=== PATIENT | female | born 1970 | race African-American/Black ===

== ENCOUNTER 2017-03-03 10:38 | Emergency (ER) | payer MEDICARE, MEDICAID ==
--- NOTE | 2017-03-03 11:57 | ER Document Report ---
ED General - General Chief Complaint: Wrist Pain Stated Complaint: RIGHT WRIST PAIN Time Seen by Provider: 03/03/17 11:47 Mode of Arrival: Ambulatory Information source: Patient - patient is deaf Notes: Patient is a 46-year-old female presenting with right wrist pain that started 5 weeks ago. She she is unsure of any specific injury and denies any recent fall. She states the pain is localized to her right wrist with associated swelling to the same. She states the pain prevents her from lifting anything heavy with her right arm and is worse when she sleeps. She endorses associated swelling but denies any numbness or tingling. She describes the pain as throbbing. She has tried heating pad and [id number] pain medication with no relief. 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 Patient is deaf and entire history and physical exam were assisted by [employer] sanding machine buffer. TRAVEL OUTSIDE OF THE [place] IN LAST 30 DAYS: No - Related Data Allergies/Adverse Reactions: No Known Allergies Allergy (Verified 10/09/15 12:34) Past Medical History - General Information source: Patient - Social History Smoking Status: Never Smoker Family History: Reviewed & Not Pertinent Past Surgical History: Reports: Hx Orthopedic Surgery - L knee - Immunizations Immunizations up to date: Yes Hx Diphtheria, Pertussis, Tetanus Vaccination: No Review of Systems - Review of Systems Constitutional: No symptoms reported EENT: No symptoms reported Cardiovascular: No symptoms reported Respiratory: No symptoms reported Gastrointestinal: No symptoms reported Genitourinary: No symptoms reported Female Genitourinary: No symptoms reported Musculoskeletal: See HPI Skin: No symptoms reported Hematologic/Lymphatic: No symptoms reported Neurological/Psychological: No symptoms reported Physical Exam - Vital signs Vitals: Temp Pulse Resp BP Pulse Ox 98.1 F 71 16 127/61 H 99 03/03/17 10:45 03/03/17 10:45 03/03/17 10:45 03/03/17 10:45 03/03/17 10:45 - Notes Notes: PHYSICAL EXAM: CONSTITUTIONAL: Alert and oriented, well-appearing and in no acute distress. HENT: Normocephalic, atraumatic. Trachea midline. Uvula midline. Moist mucous membranes. EYES: Pupils equal round and reactive to light, EOM intact. Sclera anicteric, conjunctiva are normal. No entrapment. NECK: supple without lymphadenopathy. HEART: Regular rate and rhythm without murmurs. LUNGS: CTAB and equal. No wheezes, rales or rhonchi. BACK: nontender, no paraspinous spasm, 5+/5 strengths, DTRs 2+, SLR -. EXTREMITIES: Right wrist - tender to palpation over first dorsal compartment over the radial styloid with associated nonpitting edema. Distal pulses intact. Patient has full range of motion of thumb with the ability to touch each finger. Bessy test is positive, Tinel's and Phalen's test is negative. normal range of motion, no pitting edema. No cyanosis. Cap Refill <3 seconds. NEURO: Cranial nerves grossly intact. Normal sensory/motor exams. PSYCH: Normal mood, normal affect. SKIN: Warm and dry. Normal turgor. No rashes or lesions noted. Course - Re-evaluation Re-evalutation: 03/03/17 12:51 Patient seen and examined. Used MARTTI for translation as patient is deaf. Patient is alert and oriented, no distress noted and nontoxic in appearance. No evidence of cellulitis or septic arthritis. Swelling to the distal radius and ulna concerning for possible deformity however not palpable on exam. Patient a positive Bessy's test on exam and negative testing for carpal tunnel syndrome. Will obtain x-rays. 03/03/17 13:51 Reviewed imaging studies which is negative for acute fracture or dislocation. Based on exam feel this is De Quervain tendinopathy. Will treat with thumb spica splint and steroids/anti-inflammatories. Advised to follow-up with primary care doctor. Low suspicion at this time versus septic arthritis or other emergent conditions. At this time, will discharge with return precautions and follow-up recommendations. Verbal discharge instructions given at the bedside and opportunity for questions given. Medication warnings reviewed. Patient is in agreement with this plan and has verbalized understanding of return precautions and the need for primary care follow-up in the next 24-72 hours. - Vital Signs Vital signs: Temp Pulse Resp BP Pulse Ox 98.1 F 71 16 127/61 H 99 03/03/17 10:45 03/03/17 10:45 03/03/17 10:45 03/03/17 10:45 03/03/17 10:45 Procedures - Immobilization Right Wrist Pre-Proc Neuro Vasc Exam: Normal Immobilizer type: Thumb spica Performed by: PCT Post-Proc Neuro Vasc Exam: Normal Alignment checked and good: Yes Discharge - Discharge Clinical Impression: Tendinitis, de Quervain's Condition: Stable Disposition: HOME, SELF-CARE Additional Instructions: Tendonitis The pain you are having is due to tendonitis -- an inflammation around a muscle tendon. It's usually caused by overuse or repeated minor injuries ( strains) of the tendon. Your xray today was normal - no signs of broken bones or dislocation. Tendonitis can take two to four weeks to heal. In fact, you may actually worsen for a few days despite treatment. Tendonitis is usually treated with rest, local heat, and antiinflammatory medication. Sometimes cold packs are recommended if the tendonitis has just started. If the pain is severe or prolonged, cortisone injections may be required. Call the doctor if pain or swelling become severe, if new discoloration or redness appears, or if numbness is noted. Temporary Splint A splint has been applied for protection. This is a temporary measure to allow the healing to begin. Once the area can be moved painfree, you can put the splint aside. As you begin to use the injured part, be careful not to put so much stress on it that it hurts. If routine use causes pain, put the splint back on! If you can't use the part without pain after several days' rest, or if the injury is not completely painfree within a week or two, please return for re- examination. If there is unexpected severe pain, numbness, discoloration, or swelling beyond the splint, you should call the doctor or return at once. STEROID MEDICATION: You have been given a medicine of the cortisone/steroid class. This medication is used to control inflammation or allergy. It is usually only given for a short period of time, until the acute process subsides. There are usually no side effects from short-term use of cortisone-like medications. Some persons feel an increased sense of well-being and are not sleepy at bedtime. Long-term use of cortisone medications is best avoided, unless required for a severe condition. If your condition does not remit, or relapses after the course of corticosteroid medication, you should consult your physician. Follow up with the provider of your choice as soon as possible. Return if symptoms worsen. Prescriptions: Ketorolac Tromethamine [Toradol 10 mg Tablet] 10 mg PO Q8HP PRN #20 tablet PRN Reason: Prednisone [Deltasone 10 mg Tablet] 10 mg PO ASDIR PRN #21 tablet PRN Reason: Forms: Elevated Blood Pressure, Return to Work
--- NOTE | 2017-03-03 13:42 | RADIOLOGY REPORT (SQ) ---
EXAM DESCRIPTION: WRIST RIGHT 3 VIEWS COMPLETED DATE/TIME: 03/03/2017 12:54 pm REASON FOR STUDY: FALL, swelling, pain COMPARISON: None. NUMBER OF VIEWS: Three views. TECHNIQUE: AP, lateral, and oblique radiographic images acquired of the right wrist. LIMITATIONS: None. FINDINGS: MINERALIZATION: Normal. BONES: No acute fracture or dislocation. No worrisome bone lesions. Normal alignment. SOFT TISSUES: No soft tissue swelling. No foreign body. OTHER: No other significant finding. IMPRESSION: NEGATIVE STUDY OF THE RIGHT WRIST. NO RADIOGRAPHIC EVIDENCE OF ACUTE INJURY. TECHNICAL DOCUMENTATION: JOB ID: [id number] [employer]- All Rights Reserved
[2017-03-03 14:26] VITALS: BP 123/69
== END 2017-03-03 14:25 | disposition home or self-care (01) ==
LOC: ER 10:38
DX: M77.8 Other enthesopathies, not elsewhere classified (principal); M25.531 Pain in right wrist; H91.90 Unspecified hearing loss, unspecified ear
CPT/HCPCS: 99283

== ENCOUNTER 2017-10-18 10:03 | Emergency (ER) | payer MEDICARE, OTHER ==
[2017-10-18] MEDS ORDERED: ONDANSETRON 4 MG TAB.RAPDIS PO ONE (10:21)
--- NOTE | 2017-10-18 10:23 | ER Document Report ---
ED Medical Screen (RME) - General Chief Complaint: Epigastric Pain Stated Complaint: ABDOMINAL PAIN Time Seen by Provider: 10/18/17 10:16 Mode of Arrival: Ambulatory Information source: Patient Notes: This is a 47-year-old female who is deaf who presents to the emergency room with epigastric pain since yesterday. Patient reports nausea and has vomited twice. Patient denies any fever, dysuria, hematuria, vaginal discharge. Medicines: None Past surgical history: Left knee surgery Past medical history: None No known drug allergies TRAVEL OUTSIDE OF THE [place] IN LAST 30 DAYS: No - Related Data Allergies/Adverse Reactions: No Known Allergies Allergy (Verified 10/18/17 10:06) Past Medical History Renal/ Medical History: Denies: Hx Peritoneal Dialysis Past Surgical History: Reports: Hx Orthopedic Surgery - L knee - Immunizations Immunizations up to date: Yes Hx Diphtheria, Pertussis, Tetanus Vaccination: No Physical Exam - Vital signs Vitals: Temp Pulse Resp BP Pulse Ox 98.5 F 69 20 136/69 H 97 10/18/17 10:15 10/18/17 10:15 10/18/17 10:15 10/18/17 10:15 10/18/17 10:15 Course - Vital Signs Vital signs: Temp Pulse Resp BP Pulse Ox 98.5 F 69 20 136/69 H 97 10/18/17 10:15 10/18/17 10:15 10/18/17 10:15 10/18/17 10:15 10/18/17 10:15
[2017-10-18] MEDS ORDERED: MAG HYDROX/AL HYDROX/SIMETH SUSP 30 ML UDCUP PO ONE (10:34)
[2017-10-18] MEDS ORDERED: LIDOCAINE 2% VISCOUS SOLN 20 ML UDCUP PO ONE (10:34)
[2017-10-18] MEDS ORDERED: METOCLOPRAMIDE HCL ORAL SOLN 10 MG/10 ML UDCUP PO ONE (10:34)
--- NOTE | 2017-10-18 10:44 | ER Document Report ---
ED General - General Chief Complaint: Epigastric Pain Stated Complaint: ABDOMINAL PAIN Time Seen by Provider: 10/18/17 10:16 Mode of Arrival: Ambulatory TRAVEL OUTSIDE OF THE [place] IN LAST 30 DAYS: No - HPI Notes: 47-year-old female presents with him as well as epigastric pain starting yesterday. The patient is deaf and had to use [employer] machine stamper. Stated this began yesterday. She had 2 episodes of nausea vomiting. No coffee-ground emesis. No chest pain or shortness of breath. The patient denies any hematuria or dysuria denies black bloody or tarry stools. Not had this in the past. Describes it as burning. - Related Data Allergies/Adverse Reactions: No Known Allergies Allergy (Verified 10/18/17 10:23) Past Medical History - General Information source: Patient - Social History Smoking Status: Never Smoker Chew tobacco use (# tins/day): No Frequency of alcohol use: None Drug Abuse: None Family History: Reviewed & Not Pertinent Patient has suicidal ideation: No Patient has homicidal ideation: No Renal/ Medical History: Denies: Hx Peritoneal Dialysis Past Surgical History: Reports: Hx Orthopedic Surgery - L knee - Immunizations Immunizations up to date: Yes Hx Diphtheria, Pertussis, Tetanus Vaccination: No Review of Systems - Review of Systems Cardiovascular: denies: Chest pain Gastrointestinal: Abdominal pain, Nausea, Vomiting. denies: Black stools, Rectal bleeding Genitourinary: denies: Dysuria -: Yes All other systems reviewed and negative Physical Exam - Vital signs Vitals: Temp Pulse Resp BP Pulse Ox 98.5 F 69 20 136/69 H 97 10/18/17 10:15 10/18/17 10:15 10/18/17 10:15 10/18/17 10:15 10/18/17 10:15 - Notes Notes: GENERAL_APPEARANCE: well_nourished, alert, cooperative, is uncomfortable VITALS: reviewed, see vital signs table. HEAD: no_swelling\tenderness on the head. EYES: conjunctiva_clear. NOSE: no_nasal_discharge. MOUTH: (-)decreased moisture. THROAT: no_throat_inflammation, no_airway_obstruction. no_lymphadenopathy NECK: supple, no_neck_tenderness, (-)thyromegaly. BACK: no_back_tenderness. CHEST_WALL: no_chest_tenderness. LUNGS: no_wheezing, no_rales, no_rhonchi, (-)accessory muscle use, good air exchange bilateral. HEART: normal_rate, normal_rhythm, normal_S1, normal_S2, (-)S3, (-)S4, no_ murmur, no_rub. ABDOMEN: normal_BS, soft, epigastric_abd_tenderness, (-)guarding, (-)rebound, no_organomegaly, no_abd_masses. EXTREMITIES: good pulses in all_extremities, no_swelling\tenderness in the extremities, no_edema. SKIN: warm, dry, good_color, no_rash. MENTAL_STATUS: speech_clear, oriented_X_3, normal_affect, responds_ appropriately to questions. NEURO: Neg Motor or Sensory Deficits on exam, CN 2-12 intact, DTR 2+ symmetric x 4, No cerbellar signs Course - Re-evaluation Re-evalutation: 10/18/17 10:42 47-year-old female presents to the emergency department with epigastric pain. Some generalized blood work check pancreatic enzymes liver enzymes get an ultrasound of the abdomen. X-ray to assess for free air. Give the patient a GI cocktail and some Zofran. 10/18/17 14:09 I spoke with the patient through the mixed signal design engineer Yahir. He does take a lot of Aleve at home. Her gallbladder stuff looked good. Her exam seems more epigastric she may be having an early ulcer formation she has no black bloody or tarry stools or significant anemia. Will place her on acid reduction and Carafate. Advised her to stop taking the Aleve. Have an NSAID induced gastritis versus early ulcer formation. Will refer to GI - Dr Church - Vital Signs Vital signs: Temp Pulse Resp BP Pulse Ox 98.5 F 69 20 136/69 H 97 10/18/17 10:15 10/18/17 10:15 10/18/17 10:15 10/18/17 10:15 10/18/17 10:15 - Laboratory Result Diagrams: 10/18/17 11:07 10/18/17 11:07 Laboratory results interpreted by me: 10/18/17 10/18/17 11:07 11:57 Sodium 145.9 H BUN 22 H AST 44 H Total Protein 8.9 H Urine Protein 30 H Urine Ketones 20 H Urine Bilirubin SMALL H Urine Urobilinogen 2.0 H Ur Leukocyte Esterase SMALL H - Diagnostic Test Radiology reviewed: Image reviewed Radiology results interpreted by me: 10/18/17 14:09 Abdomen Ultrasound 10/18/17 10:21 IMPRESSION: NORMAL RIGHT UPPER QUADRANT ULTRASOUND. Acute Abdomen Series 10/18/17 10:38 IMPRESSION: NO RADIOGRAPHIC EVIDENCE FOR ACUTE ABDOMINAL DISEASE. Discharge - Discharge Clinical Impression: Gastritis and duodenitis Condition: Good Disposition: HOME, SELF-CARE Instructions: Gastritis ([facility]) Additional Instructions: Please follow-up with gastroenterology for further care if he is worse return to the ER otherwise avoid spicy and fatty foods. Prescriptions: Pantoprazole Sodium [Protonix] 40 mg PO DAILY #30 tablet. Sucralfate [Carafate 1 gm Tablet] 1 gm PO ACHS #60 tablet Referrals: STEPHANY CHURCH MD [ACTIVE STAFF] - Follow up as needed
[2017-10-18 11:29] LABS: ABSOLUTE BASOPHILS # (AUTO) 0.1 10^3/uL (0.0-0.2); ABSOLUTE EOSINOPHILS # (AUTO) 0.1 10^3/uL (0.0-0.6); ABSOLUTE LYMPHOCYTES (AUTO) 1.2 10^3/uL (0.5-4.7); ABSOLUTE MONOCYTES (AUTO) 0.5 10^3/uL (0.1-1.4); ABSOLUTE NEUT (AUTO) 4.7 10^3/uL (1.7-8.2); BASOPHILS % (AUTO) 1.1 % (0-2); EOSINOPHILS % (AUTO) 0.9 % (0-6); HEMOGLOBIN 13.3 g/dL (12.0-15.5); LYMPHOCYTES % (AUTO) 18.4 % (13-45); MEAN CORPUSCULAR HEMOGLOBIN 29.1 pg (27.0-33.4); MEAN CORPUSCULAR HGB CONC 33.3 g/dL (32.0-36.0); MEAN CORPUSCULAR VOLUME 87 fl (80-97); MONOCYTES % (AUTO) 7.6 % (3-13); PLATELET COUNT 223 10^3/uL (150-450); RED BLOOD COUNT 4.58 10^6/uL (3.72-5.28); TOTAL CELLS COUNTED % (AUTO) 100 %; WHITE BLOOD COUNT 6.6 10^3/uL (4.0-10.5)
[2017-10-18 11:53] LABS: ALANINE AMINOTRANSFERASE 24 U/L (9-52); ALBUMIN 4.5 g/dL (3.5-5.0); ALKALINE PHOSPHATASE 105 U/L (38-126); ANION GAP 15 (5-19); ASPARTATE AMINO TRANSFERASE 44 U/L (14-36); BILIRUBIN,DIRECT 0.4 mg/dL (0.0-0.4); BILIRUBIN,TOTAL 0.8 mg/dL (0.2-1.3); BLOOD UREA NITROGEN 22 mg/dL (7-20); CALCIUM 9.7 mg/dL (8.4-10.2); CARBON DIOXIDE 26 mmol/L (22-30); CHLORIDE 105 mmol/L (98-107); GLUCOSE 92 mg/dL (75-110); LIPASE 57.4 U/L (23-300); POTASSIUM 3.8 mmol/L (3.6-5.0); SODIUM 145.9 mmol/L (137-145); TOTAL PROTEIN 8.9 g/dL (6.3-8.2)
--- NOTE | 2017-10-18 12:16 | RADIOLOGY REPORT (SQ) ---
EXAM DESCRIPTION: U/S ABDOMEN LIMITED W/O DOP COMPLETED DATE/TIME: 10/18/2017 12:06 pm REASON FOR STUDY: upper abd pain r/o GB disease COMPARISON: None. TECHNIQUE: Dynamic and static grayscale images acquired of the abdomen and recorded on PACS. Additio nal selected color Doppler and spectral images recorded. LIMITATIONS: None. FINDINGS: PANCREAS: No masses. Visualized pancreatic duct normal caliber. LIVER: No masses. Echotexture normal. LIVER VASCULATURE: Normal directional flow of the main portal vein and hepatic veins. GALLBLADDER: No stones. Normal wall thickness. No pericholecystic fluid. ULTRASOUND-DETECTED GRAHAM'S SIGN: Negative. INTRAHEPATIC DUCTS AND COMMON DUCT: CBD and intrahepatic ducts normal caliber. No filling defects. INFERIOR VENA CAVA: Normal flow. AORTA: No aneurysm. RIGHT KIDNEY: Normal size. Normal echogenicity. No solid or suspicious masses. No hydronephrosis. No calcifications. PERITONEAL AND RIGHT PLEURAL SPACE: No ascites or effusions. OTHER: No other significant findings. IMPRESSION: NORMAL RIGHT UPPER QUADRANT ULTRASOUND. TECHNICAL DOCUMENTATION: JOB ID: [id number]- All Rights Reserved Reading location - IP/workstation name: [email or web address]
[2017-10-18 12:33] LABS: APPEARANCE,URINE CLOUDY; BILIRUBIN,URINE SMALL (NEGATIVE); COLOR,URINE DARK YELLOW; GLUCOSE, URINE NEGATIVE (NEGATIVE); KETONES,URINE 20 mg/dL (NEGATIVE); LEUKOCYTE ESTERASE,URINE SMALL (NEGATIVE); NITRITE,URINE NEGATIVE (NEGATIVE); PROTEIN,URINE 30 mg/dL (NEGATIVE)
--- NOTE | 2017-10-18 12:42 | RADIOLOGY REPORT (SQ) ---
EXAM DESCRIPTION: ACUTE ABDOMEN SERIES COMPLETED DATE/TIME: 10/18/2017 12:32 pm REASON FOR STUDY: Epigastric pain COMPARISON: None. NUMBER OF VIEWS: Three views. TECHNIQUE: Frontal chest, supine abdomen and upright/decubitus abdomen radiographic images acquired. LIMITATIONS: None. FINDINGS: CHEST: Lungs clear of infiltrates. FREE AIR: None. No abnormal gas collections. BOWEL GAS PATTERN: Nonobstructive pattern. No dilated loops or air fluid levels. CALCIFICATIONS: No suspicious calcifications. HARDWARE: None in the abdomen. SOFT TISSUES: No gross mass or suggestion of organomegaly. BONES: No acute fracture. No worrisome bone lesions. OTHER: No other significant finding. IMPRESSION: NO RADIOGRAPHIC EVIDENCE FOR ACUTE ABDOMINAL DISEASE. TECHNICAL DOCUMENTATION: JOB ID: [id number] [employer]- All Rights Reserved Reading location - IP/workstation name: [email or web address]
[2017-10-18 14:31] VITALS: BP 119/67
== END 2017-10-18 14:35 | disposition home or self-care (01) ==
LOC: ER 10:03
DX: K29.80 Duodenitis without bleeding (principal); K29.70 Gastritis, unspecified, without bleeding; R11.2 Nausea with vomiting, unspecified; R10.13 Epigastric pain
CPT/HCPCS: 99284; 36415; 84702; 83690; 85025; 80053; 81001; 74022; 76705; A9270 ×2; J3490; S0119

== ENCOUNTER 2018-09-03 10:29 | Emergency (ER) | payer MEDICARE, OTHER ==
[2018-09-03 10:40] VITALS: BP 126/70
--- NOTE | 2018-09-03 11:39 | ER Document Report ---
ED Medical Screen (RME) - General Chief Complaint: Abdominal Pain Stated Complaint: ABDOMINAL PAIN Time Seen by Provider: 09/03/18 11:27 Mode of Arrival: Ambulatory Information source: Patient Notes: Patient presents emergency department with complaints of epigastric abdominal pain for the past week. Reports she vomited one time. Denies fever. Reports last bowel movement was 1 to 2 days ago. Denies past medical history of chronic disease. Denies pain with void. Patient is deaf does not read lips. You need to write everything down to communicate with her. I have greeted and performed a rapid initial assessment of this patient. A comprehensive ED assessment and evaluation of the patient, analysis of test results and completion of the medical decision making process will be conducted by additional ED providers. Dictation of this chart was performed using voice recognition software; therefore, there may be some unintended grammatical errors. TRAVEL OUTSIDE OF THE [place] IN LAST 30 DAYS: No - Related Data Allergies/Adverse Reactions: No Known Allergies Allergy (Verified 09/03/18 10:30) Past Medical History Renal/ Medical History: Denies: Hx Peritoneal Dialysis Past Surgical History: Reports: Hx Orthopedic Surgery - L knee - Immunizations Immunizations up to date: Yes Hx Diphtheria, Pertussis, Tetanus Vaccination: No Physical Exam - Vital signs Vitals: Temp Pulse Resp BP Pulse Ox 98.0 F 50 L 16 126/70 H 98 09/03/18 10:37 09/03/18 10:37 09/03/18 10:37 09/03/18 10:37 09/03/18 10:37 Course - Vital Signs Vital signs: Temp Pulse Resp BP Pulse Ox 98.0 F 50 L 16 126/70 H 98 09/03/18 10:37 09/03/18 10:37 09/03/18 10:37 09/03/18 10:37 09/03/18 10:37
[2018-09-03 12:04] LABS: ABSOLUTE BASOPHILS # (AUTO) 0.1 10^3/uL (0.0-0.2); ABSOLUTE EOSINOPHILS # (AUTO) 0.1 10^3/uL (0.0-0.6); ABSOLUTE LYMPHOCYTES (AUTO) 1.8 10^3/uL (0.5-4.7); ABSOLUTE MONOCYTES (AUTO) 0.6 10^3/uL (0.1-1.4); ABSOLUTE NEUT (AUTO) 4.3 10^3/uL (1.7-8.2); EOSINOPHILS % (AUTO) 1.2 % (0-6); HEMATOCRIT 38.9 % (36.0-47.0); HEMOGLOBIN 12.8 g/dL (12.0-15.5); LYMPHOCYTES % (AUTO) 25.9 % (13-45); MEAN CORPUSCULAR HEMOGLOBIN 28.7 pg (27.0-33.4); MEAN CORPUSCULAR HGB CONC 32.8 g/dL (32.0-36.0); MEAN CORPUSCULAR VOLUME 88 fl (80-97); MONOCYTES % (AUTO) 8.1 % (3-13); PLATELET COUNT 240 10^3/uL (150-450); RED BLOOD COUNT 4.44 10^6/uL (3.72-5.28); RED CELL DISTRIBUTION WIDTH 13.1 % (11.5-14.0); SEGMENTED NEUTROPHILS % (AUTO) 63.8 % (42-78); TOTAL CELLS COUNTED % (AUTO) 100 %; WHITE BLOOD COUNT 6.8 10^3/uL (4.0-10.5)
[2018-09-03 12:06] LABS: APPEARANCE,URINE SLIGHTLY-CLOUDY; BILIRUBIN,URINE NEGATIVE (NEGATIVE); COLOR,URINE YELLOW; GLUCOSE, URINE NEGATIVE (NEGATIVE); KETONES,URINE NEGATIVE (NEGATIVE); LEUKOCYTE ESTERASE,URINE SMALL (NEGATIVE); NITRITE,URINE NEGATIVE (NEGATIVE); PROTEIN,URINE 30 mg/dL (NEGATIVE)
[2018-09-03 12:16] LABS: ALANINE AMINOTRANSFERASE 12 U/L (9-52); ALBUMIN 4.3 g/dL (3.5-5.0); ALKALINE PHOSPHATASE 86 U/L (38-126); ANION GAP 8 (5-19); ASPARTATE AMINO TRANSFERASE 18 U/L (14-36); BILIRUBIN,DIRECT 0.2 mg/dL (0.0-0.4); BILIRUBIN,TOTAL 0.6 mg/dL (0.2-1.3); BLOOD UREA NITROGEN 15 mg/dL (7-20); CALCIUM 9.7 mg/dL (8.4-10.2); CARBON DIOXIDE 28 mmol/L (22-30); CHLORIDE 105 mmol/L (98-107); GLUCOSE 86 mg/dL (75-110); LIPASE 71.2 U/L (23-300); SODIUM 140.6 mmol/L (137-145); TOTAL PROTEIN 8.2 g/dL (6.3-8.2)
[2018-09-03 12:17] LABS: POTASSIUM 4.4 mmol/L (3.6-5.0)
--- NOTE | 2018-09-03 12:19 | RADIOLOGY REPORT (SQ) ---
EXAM DESCRIPTION: U/S ABDOMEN LIMITED W/O DOP COMPLETED DATE/TIME: 09/03/2018 12:09 pm REASON FOR STUDY: epigastric pain x 1 week COMPARISON: Abdominal ultrasound 10/18/2017 Abdominal radiographs 10/18/2017 TECHNIQUE: Dynamic and static grayscale images acquired of the abdomen and recorded on PACS. Additio nal selected color Doppler and spectral images recorded. LIMITATIONS: None. FINDINGS: PANCREAS: Midline pancreas unremarkable LIVER: No masses. Echotexture normal. LIVER VASCULATURE: Normal directional flow of the main portal vein and hepatic veins. GALLBLADDER: No stones. Normal wall thickness. No pericholecystic fluid. ULTRASOUND-DETECTED GRAHAM'S SIGN: Negative. INTRAHEPATIC DUCTS AND COMMON DUCT: CBD and intrahepatic ducts normal caliber. No filling defects. INFERIOR VENA CAVA: Normal flow. AORTA: No aneurysm. RIGHT KIDNEY: Normal size. Normal echogenicity. No solid or suspicious masses. No hydronephrosis. No calcifications. PERITONEAL AND RIGHT PLEURAL SPACE: No ascites or effusions. OTHER: No other significant findings. IMPRESSION: NORMAL RIGHT UPPER QUADRANT ULTRASOUND. TECHNICAL DOCUMENTATION: JOB ID: [id number] [employer]- All Rights Reserved Reading location - IP/workstation name: [email or web address]
--- NOTE | 2018-09-03 12:53 | ER Document Report ---
ED General - General Chief Complaint: Abdominal Pain Stated Complaint: ABDOMINAL PAIN Time Seen by Provider: 09/03/18 11:27 Mode of Arrival: Ambulatory TRAVEL OUTSIDE OF THE [place] IN LAST 30 DAYS: No - HPI Notes: Patient is a 48-year-old female that presents to the emergency department for chief complaint of abdominal pain. Patient reports epigastric abdominal pain which is been constant for the last week. She states it gets a little worse after eating. She has had one episode of vomiting. She denies any associated fever, chills or diarrhea. She has had a normal bowel movement 1 or 2 days ago. She does have a history of gastritis and used to be taking Protonix which she is not currently on. Patient states the pain is worse when she is eating but denies any relieving factors. She denies hematemesis. Denies dysuria and urinary frequency. 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 Past Medical History: Gastritis Past Surgical History: Reviewed in chart Social History: Denies tobacco and alcohol use Family History: Reviewed and noncontributory for presenting illness Allergies: Reviewed, see documented allergy list. REVIEW OF SYSTEMS: CONSTITUTIONAL : No fever No chills No diaphoresis No recent illness EENT: No vision changes No congestion No sore throat CARDIOVASCULAR: No chest pain No palpitations RESPIRATORY: No shortness of breath No cough No difficulty breathing GASTROINTESTINAL: abdominal pain No nausea vomiting No diarrhea GENITOURINARY: No dysuria No hematuria No difficulty urinating MUSCULOSKELETAL: No back pain No leg pain No arm pain SKIN: No rashes No lesions LYMPHATIC: No swollen, enlarged glands. NEUROLOGICAL: No lightheadedness No headache No weakness No paresthesias PSYCHIATRIC: No anxiety No depression PHYSICAL EXAMINATION: Vital signs reviewed, nursing noted reviewed. GENERAL: Well-appearing, well-nourished and in no acute distress. HEAD: Atraumatic, normocephalic. EYES: Eyes appear normal, extraocular movements intact, sclera anicteric, conjunctiva are normal. ENT: nares patent, oropharynx clear without exudates. Moist mucous membranes. NECK: Normal range of motion, supple without lymphadenopathy LUNGS: Breath sounds clear to auscultation bilaterally and equal. No wheezes rales or rhonchi. HEART: Regular rate and rhythm without murmurs ABDOMEN: Soft, mild epigastric tenderness, normoactive bowel sounds. No rebound, guarding, or rigidity. No masses appreciated. EXTREMITIES: Nontender, good range of motion, no pitting or edema. NEUROLOGICAL: No focal neurological deficits. Moves all extremities spontaneously Motor and sensory grossly intact on exam. PSYCH: Normal mood, normal affect. SKIN: Warm, Dry, normal turgor, no rashes or lesions noted on exposed skin - Related Data Allergies/Adverse Reactions: No Known Allergies Allergy (Verified 09/03/18 10:30) Past Medical History - General Information source: Patient - Social History Smoking Status: Never Smoker Frequency of alcohol use: None Drug Abuse: None Family History: Reviewed & Not Pertinent Patient has suicidal ideation: No Patient has homicidal ideation: No Renal/ Medical History: Denies: Hx Peritoneal Dialysis Past Surgical History: Reports: Hx Orthopedic Surgery - L knee - Immunizations Immunizations up to date: Yes Hx Diphtheria, Pertussis, Tetanus Vaccination: No Physical Exam - Vital signs Vitals: Temp Pulse Resp BP Pulse Ox 98.0 F 50 L 16 126/70 H 98 09/03/18 10:37 09/03/18 10:37 09/03/18 10:37 09/03/18 10:37 09/03/18 10:37 Course - Re-evaluation Re-evalutation: 09/03/18 12:51 Vitals reviewed. Nursing notes reviewed. Patient is well-appearing with stable vitals. Has mild epigastric tendernes with no peritoneal signs. Laboratories and normal lipase. She has no electrolyte derangement or renal insufficiency. She has no leukocytosis to suggest acute underlying infection. Ultrasound of the right upper quadrant was normal. Patient does have trace leuks on urinalysis however she is not having any ems of urinary tract infection to necessitate treatment with antibiotics. Patient has a history of gastritis and will be started back on Protonix. She was counseled on dietary changes. She was counseled on follow-up and return precautions. She is stable at discharge. All questions were answered Laboratory 09/03/18 09/03/18 09/03/18 11:45 11:45 11:45 WBC 6.8 RBC 4.44 Hgb 12.8 Hct 38.9 MCV 88 MCH 28.7 MCHC 32.8 RDW 13.1 Plt Count 240 Seg Neutrophils % 63.8 Lymphocytes % 25.9 Monocytes % 8.1 Eosinophils % 1.2 Basophils % 1.0 Absolute Neutrophils 4.3 Absolute Lymphocytes 1.8 Absolute Monocytes 0.6 Absolute Eosinophils 0.1 Absolute Basophils 0.1 Sodium 140.6 Potassium 4.4 Chloride 105 Carbon Dioxide 28 Anion Gap 8 BUN 15 Creatinine 0.72 Est GFR ( Amer) > 60 Est GFR (Non-Af Amer) > 60 Glucose 86 Calcium 9.7 Total Bilirubin 0.6 Direct Bilirubin 0.2 Neonat Total Bilirubin Not Reportable Neonat Direct Bilirubin Not Reportable Neonat Indirect Bili Not Reportable AST 18 ALT 12 Alkaline Phosphatase 86 Total Protein 8.2 Albumin 4.3 Lipase 71.2 Urine Color YELLOW Urine Appearance SLIGHTLY-CLOUDY Urine pH 6.0 Ur Specific [place] 1.030 Urine Protein 30 H Urine Glucose (UA) NEGATIVE Urine Ketones NEGATIVE Urine Blood NEGATIVE Urine Nitrite NEGATIVE Urine Bilirubin NEGATIVE Urine Urobilinogen 4.0 H Ur Leukocyte Esterase SMALL H Urine WBC (Auto) 47 Urine RBC (Auto) 3 Squamous Epi Cells Auto 3 Urine Mucus (Auto) MANY Urine Ascorbic Acid 20 H Urine HCG, Qual NEGATIVE Abdomen Ultrasound 09/03/18 11:35 IMPRESSION: NORMAL RIGHT UPPER QUADRANT ULTRASOUND. - Vital Signs Vital signs: Temp Pulse Resp BP Pulse Ox 98.0 F 50 L 16 126/70 H 98 09/03/18 10:37 09/03/18 10:37 09/03/18 10:37 09/03/18 10:37 09/03/18 10:37 - Laboratory Result Diagrams: 09/03/18 11:45 09/03/18 11:45 Laboratory results interpreted by me: 09/03/18 11:45 Urine Protein 30 H Urine Urobilinogen 4.0 H Ur Leukocyte Esterase SMALL H Urine Ascorbic Acid 20 H Discharge - Discharge Clinical Impression: Epigastric abdominal pain Condition: Stable Disposition: HOME, SELF-CARE Instructions: Gastritis ([facility]) Additional Instructions: Please return to the emergency department if you have any worsening, or concern of your symptoms. Please return to the emergency department if you develop chest pain, difficulty breathing, severe abdominal pain, or ongoing vomiting. Please follow-up with your primary care physician in 2-3 days and any other recommended physicians. If prescribed, take all medications as directed. If you have any questions or concerns do not hesitate to return the emergency department for evaluation. Eat a bland diet to allow your stomach to heal. Avoid eating any spicy food, fried food, citric foods, caffeine, chocolate or coffee. If your abdominal pain is getting worse or you begin to have more vomiting and fevers please return to the emergency room Prescriptions: Pantoprazole Sodium [Protonix] 40 mg PO DAILY #30 granpkt. Referrals: [facility] [Provider Group] - Follow up as needed
== END 2018-09-03 13:00 | disposition home or self-care (01) ==
LOC: ER 10:29
DX: R10.13 Epigastric pain (principal)
CPT/HCPCS: 36415; 76705; 80053; 81001; 81025; 83690; 85025; 99284